=== PATIENT | male | born 1955 | race Caucasian/White ===

== ENCOUNTER → 2017-09-08 | Outpatient (CLI) | payer MEDICARE ==
[2017-09-08 09:38] LABS: EKG EKG PERFORMED
[2017-09-08 10:12] LABS: CH 30.6; CHCM 32.8; HCT 41.5 % (39.0-53.0); HDW 2.32; HGB 14.1 gm/dL (13.0-17.5); MCH 31.8 pg (25.0-35.0); MCHC 33.9 g/dL (31.0-37.0); MCV 93.7 fL (80.0-100.0); RBC 4.43 m/uL (4.30-5.90); RDW 13.6 % (11.5-15.5); WBC 7.6 k/uL (3.8-10.6)
[2017-09-08 10:23] LABS: Partial Thromboplastin Time 24.2 sec (22.0-30.0); Prothrombin Time 10.3 sec (9.0-12.0)
[2017-09-08 10:29] LABS: Appearance,Urine Clear (Clear); Bilirubin,Urine Negative (Negative); Glucose,Urine (UA) Negative (Negative); Ketones,Urine Negative (Negative); Leukocyte Esterase,Urine Negative (Negative); Nitrite,Urine Negative (Negative); Protein,Urine Negative (Negative); Specific Gravity,Urine 1.009 (1.001-1.035); UA Billing (MACRO vs. MICRO) CHEM; Urobilinogen,Urine <2.0 mg/dL (<2.0)
[2017-09-08 11:05] LABS: Anion Gap 10 mmol/L; Calcium 9.4 mg/dL (8.4-10.2); Carbon Dioxide 25 mmol/L (22-30); Chloride 103 mmol/L (98-107); Glucose 122 mg/dL (74-99); Non-African American GFR(MDRD) >60 (>60 ml/min/1.73 sqM); Sodium 138 mmol/L (137-145); Total Bilirubin 0.4 mg/dL (0.2-1.3); Total Protein 6.8 g/dL (6.3-8.2)
[2017-09-08 11:13] LABS: Blood Urea Nitrogen 12 mg/dL (9-20); Potassium 4.8 mmol/L (3.5-5.1)
[2017-09-08 11:14] LABS: ALT 26 U/L (21-72); AST 20 U/L (17-59); Alkaline Phosphatase 42 U/L (38-126)
== END | disposition home or self-care (01) ==
LOC: LABPAT 09:28
PROVIDERS: ATTEND Orthopaedic Surgery
DX: Z01.810 Encounter for preprocedural cardiovascular examination (principal); Z79.01 Long term (current) use of anticoagulants; Z01.812 Encounter for preprocedural laboratory examination
CPT/HCPCS: 36415; 80053; 81003; 85027; 85610; 85730; 87070; 93005

== ENCOUNTER → 2018-02-22 | Outpatient (CLI) | payer MEDICARE ==
--- NOTE | 2018-02-22 12:56 | CTL ---
EXAMINATION TYPE: CT Low Dose Lung DATE OF EXAM ORDERED: 02/22/2018 HISTORY: History of tobacco use. Lung cancer screening CT DLP: [address] CTDI: 3.9 mGy Automated exposure control for dose reduction was used. SCREENING VISIT: Initial study COMPARISON: None TECHNIQUE: Low dose computed tomography scan was performed through the chest at 1 mm thick sections a nd reconstructed images in the coronal plane at [address] DIAGNOSTIC QUALITY: Satisfactory FINDINGS: LUNG NODULES: Present, detailed below: An elongated 10 x 3 mm nodule abutting fissure and pleural surface axial image 152 inferior-anterior right upper lobe has fat density presumed benign. There are several calcified nodules throughout the right lung, largest measures 6 mm axial image 128. No suspicious greater than 6 mm noncalcified nodules identified bilaterally. LUNGS: COPD: Severity: Moderate Fibrosis: Severity: Moderate biapical pleural/parenchymal scarring Lymph nodes: Prominent but calcified paratracheal and right hilar lymph nodes are seen Other findings: No significant other findings identified. BILATERAL PLEURAL SPACE: Effusion: None Calcification: None Thickening: Mild to moderate biapical pleural thickening Pneumothorax: None HEART: Heart Size: Normal Coronary calcification: Mild Pericardial effusion: None OTHER FINDINGS: Upper abdomen: A few calcifications and spleen are present. Bony thorax: There is mild to moderate multilevel spurring in the thoracic spine. Supraclavicular region: No suspicious findings seen. Other: Small degree of bilateral gynecomastia is present. IMPRESSION: No suspicious greater than 6 mm nodules of soft tissue density. Evidence of old granuloma tous disease. FOLLOW UP CT CHEST RECOMMENDATION: Annual low-dose lung screening CT CT LUNG RAD: Lung-Rad 2 Benign Appearance or Behavior
== END | disposition home or self-care (01) ==
LOC: RADCTMAIN 11:50
PROVIDERS: ATTEND Family Medicine
DX: Z12.2 Encounter for screening for malignant neoplasm of respiratory organs (principal); Z87.891 Personal history of nicotine dependence

== ENCOUNTER → 2018-07-15 | Outpatient (CLI) | payer MEDICARE ==
--- NOTE | 2018-07-15 16:37 | XR ---
EXAMINATION TYPE: XR lumbar spine 2 or 3V DATE OF EXAM: 07/15/2018 COMPARISON: NONE HISTORY: Back pain TECHNIQUE: 3 views FINDINGS: There is a mild lower lumbar levoscoliosis. There is degenerative disc space narrowing thro ughout the lumbar spine and more severe at L4-5. There is spurring of the endplates. There is no comp ression fracture. Posterior elements are intact. Sacroiliac joints are intact. IMPRESSION: Multilevel spondylosis. Mild scoliosis. No fracture.
--- NOTE | 2018-07-15 16:38 | XR ---
EXAMINATION TYPE: XR cervical spine limited DATE OF EXAM: 07/15/2018 COMPARISON: None HISTORY: Neck pain TECHNIQUE: 4 views FINDINGS: There is cervical kyphotic deformity. There is old anterior fusion from C4 to C6. There is moderate spurring at C3-4 C6-7 C7-T1. Posterior elements are intact. Atlantoaxial facet joint is norm al. There are no cervical ribs. IMPRESSION: Previous fusion surgery. Kyphotic deformity. Spondylotic changes. No fracture seen.
== END | disposition home or self-care (01) ==
LOC: RADXRMAIN 16:07
PROVIDERS: ATTEND Chiropractor
DX: M47.812 Spondylosis without myelopathy or radiculopathy, cervical region (principal); M47.816 Spondylosis without myelopathy or radiculopathy, lumbar region; M41.86 Other forms of scoliosis, lumbar region; Z98.1 Arthrodesis status
CPT/HCPCS: 72040; 72100

== ENCOUNTER → 2020-07-23 | Outpatient (CLI) | payer MEDICARE ==
--- NOTE | 2020-07-23 16:32 | US ---
EXAMINATION TYPE: US abdomen complete DATE OF EXAM: 07/23/2020 COMPARISON: 08/15/2010 CLINICAL HISTORY: R10.11 RIGHT UPPER QUAD PAIN. EXAM MEASUREMENTS: Liver Length: 14.6 cm Gallbladder Wall: 0.3 cm CBD: 0.9 cm Spleen: 12.7 cm Right Kidney: 12.0 x 6.5 x 4.4 cm. Previous measurement 13.3 x 5.7 x 6.2 cm. Left Kidney: 13.0 x 7.3 x 5.2 cm previous measurement 11.8 x 6.8 x 5.8 cm. Pancreas: Obscured by bowel gas Liver: wnl Gallbladder: wnl Evidence for sonographic Perez's sign: CBD: dilated Spleen: scattered granuloma calcifications Right Kidney: No hydronephrosis or masses seen Left Kidney: 2 simple appearing cysts noted largest measuring 3.9 x 3.4 x 3.3cm, scattered calcifica tions, small stones vs calcified arteries. Upper IVC: wnl Abd Aorta: partially obscured by bowel gas, portions visualized wnl IMPRESSION: 1. Left renal cysts
== END | disposition home or self-care (01) ==
LOC: RADUSWWP 08:59
PROVIDERS: ATTEND Family Medicine
DX: N28.1 Cyst of kidney, acquired (principal)
CPT/HCPCS: 76700

== ENCOUNTER → 2021-07-09 | Outpatient (CLI) | payer MEDICARE ==
--- NOTE | 2021-07-10 08:09 | NM ---
EXAMINATION TYPE: NM stress cardiolite complete DATE OF EXAM: 07/09/2021 COMPARISON: NONE HISTORY: Shortness of breath chest pain COPD TECHNIQUE: After the intravenous administration of 9.69 mCi Tc 99m Sestamibi - Cardiolite resting SP ECT images acquired 45 minutes post injection. At peak stress 24.6 mCi Tc 99m Sestamibi - Stress images obtained 10 minutes post injection The patient was stressed with Shine protocol on the treadmill . Patient achieved 85% of predicted max imum heart rate. FINDINGS: No fixed defects are evident No reversible stress defects on Spect images Wall motion is normal Ejection fraction is calculated to be 62 %. IMPRESSION: 1. No stress-induced ischemic change.
--- NOTE | 2021-07-11 08:21 | EST ---
EXERCISE STRESS AGE: 65 SEX: M HT: 5'7" WT: 240 lbs. PROTOCOL: Cardiolite Shine STAGE: 2 DURATION OF EXERCISE: 5:32 HEART RATE REST: 67 BLOOD PRESSURE REST: 123/82 MAXIMUM HEART RATE ACHIEVED: 134 MAXIMUM BLOOD PRESSURE: 203/72 85% MPHR: 133 100% MPHR 157 METS: 7.1 INDICATIONS: Shortness of breath. CLINICAL INFORMATION: Baseline EKG shows sinus rhythm, normal axis, normal intervals. Patient exercised on Shine protocol for a total of 5-1/2 minutes, achieving 7 METS, 85% of predicted maximal heart rate, without chest pain. At peak exercise there was [address]-segment depression noted in the inferolateral lead. CONCLUSIONS: 1. Limited exercise tolerance. 2. Abnormal stress test by EKG criteria. 3. Cardiolite portion of the stress test will be reported separately. MIAN / CAYETANON: [id number] /
== END | disposition home or self-care (01) ==
LOC: RADNMMAIN 08:56
PROVIDERS: ATTEND Family Medicine
DX: R94.31 Abnormal electrocardiogram [ECG] [EKG] (principal)
CPT/HCPCS: 93017; 78452; A9500

== ENCOUNTER → 2021-12-31 | Outpatient (CLI) | payer MEDICARE ==
--- NOTE | 2021-12-31 08:25 | CTL ---
EXAMINATION TYPE: CT Low Dose Lung DATE OF EXAM ORDERED: 12/31/2021 HISTORY: Personal history of tobacco use. Lung cancer screening CT DLP: 138.[address] CTDI: 4.00 mGy Automated exposure control for dose reduction was used. SCREENING VISIT: First follow-up COMPARISON: CT dated 02/22/2018 TECHNIQUE: Low dose computed tomography scan was performed through the chest at 1 mm thick sections a nd reconstructed images in multiple planes at 1 mm and [address] DIAGNOSTIC QUALITY: Satisfactory FINDINGS: LUNG NODULES: The previously described elongated pleural-based nodule adjacent to the transverse fissure is not hayley reciated today. Left upper lobe solid 3 mm nodule, image #83, series 4, new. Stable scattered calcified pulmonary granulomas. LUNGS: COPD: Severity: Mild to moderate Fibrosis: Severity: Stable bilateral apical pulmonary fibrotic changes. Lymph nodes: Stable calcified hilar and mediastinal lymph nodes without progression. No pathologicall y enlarged lymph nodes. Other findings: None RIGHT PLEURAL SPACE: Effusion: None Calcification: None Thickening: None Pneumothorax: None LEFT PLEURAL SPACE: Effusion: None Calcification: None Thickening: None Pneumothorax: None HEART: Heart Size: Normal Coronary Calcification: Mild Pericardial Effusion: None OTHER FINDINGS: Upper abdomen: Stable splenic calcification likely related to previous granulomatous infection. Bony thorax: Mild degenerative changes of thoracic spine. Supraclavicular region: None Other: Scattered aortic atherosclerotic calcifications. IMPRESSION: Newly seen 3 mm left upper lobe nodule as described above. Stable pulmonary calcified gra nulomas and bilateral apical pulmonary fibrotic changes. CT LUNG RAD AND CT CHEST RECOMMENDATION: Benign appearance or behavior, category 2: Continue annual s creening with LDCT in 12 months. S Modifier (other clinically significant findings): None
== END | disposition home or self-care (01) ==
LOC: RADCTMAIN 06:56
PROVIDERS: ATTEND Family Medicine
DX: Z12.2 Encounter for screening for malignant neoplasm of respiratory organs (principal); R91.1 Solitary pulmonary nodule; J84.10 Pulmonary fibrosis, unspecified; Z87.891 Personal history of nicotine dependence
CPT/HCPCS: 71271

== ENCOUNTER → 2024-09-18 | Outpatient (CLI) | payer MEDICARE ==
[2024-09-18 13:29] LABS: African American GFR (CKD) >90 (>60 ml/min/1.73 sqM); Blood Urea Nitrogen 9 mg/dL (9-20); Non-African American GFR(CKD) 89 (>60 ml/min/1.73 sqM)
--- NOTE | 2024-09-18 14:24 | CT ---
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 CT DLP: [address] CTDI: mGy Automated exposure control for dose reduction was used. The craniovertebral junction relation to prevertebral soft tissues are normal. There is moderate to severe cervical kyphosis secondary to fusion of C4, C5-C6. There is moderate to marked disc space narrowing and spondylosis at the C3-4 and C6-7 levels indicating moderate to marked degenerative disc disease. Similar changes are seen at the C7/T1 level. There is moderate facet arthropathy and severe arthropathy of the uncovertebral joints throughout the cervical region. There is no bony compromise of the cervical canal. Multilevel neural foraminal stenosis as follows; severe at the C2-3 level on the left and severe at t he C3-4 level bilaterally. IMPRESSION: 1. Fusion of C4, C5 and C6 resulting in moderate to severe cervical kyphosis. 2. Advanced degenerative disc disease at the C3-4, C6-7 and C7/T1 levels. 3. Moderate facet and uncovertebral joint arthropathy resulting in neuroforaminal stenosis, severe at C2-3 on the left and severe at C3-4 bilaterally. [facility], , 09/18/2024 2:22 PM
--- NOTE | 2024-09-18 14:38 | CT ---
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 FINDINGS: The thoracic and lumbar vertebral segments are normal in height and alignment and there is no fractur e or subluxation. In the thoracic region, there is mild degenerative disc disease in the mid and lower thoracic spine. At the T7/T8 level there is a prominent hypertrophic spur posteriorly to the left of midline compromi sing the left lateral recess. There are no large thoracic disc herniations. There is mild bony neural foraminal encroachment at the T9-10 level on the left. In the lumbar spine, 4 mild bony neural foraminal encroachment at the T9/T10 level on the left. The re is partial fusion of the L4-5 segments. There is moderate disc space narrowing,, vacuum phenomena and hypertrophic spurring at the L3-4 and L 5-S1 levels indicating moderate degenerative disc disease. There is vacuum phenomena and mild narrowi ng with spondylosis at the L1-2 level indicating mild degenerative disc disease. Secondary to circumferential disc bulge, facet hypertrophy and thickening ligamentum flavum, there is a moderate to severe spinal stenosis at the L2-3 level. There is a suggestion of a moderate broad-based disc protrusion of the L3-4 disc on the left contribu ting to the spinal stenosis and left lateral recess stenosis. There is a probable small disc herniati on of the L4-5 disc posteriorly slightly to the right of midline. There is moderate to severe bony neural foraminal stenosis at the L3-4 and L4-5 levels on the right. IMPRESSION: 1. NO LUMBAR SPINE FRACTURE OR MALALIGNMENT. 2. MILD DEGENERATIVE DISC DISEASE IN THE MID TO LOWER THORACIC SPINE. 3. LEFT LATERAL RECESS STENOSIS AT THE T7/T8 LEVEL. 4. Severe spinal stenosis and left lateral recess stenosis at the L3-4 level. 5. Probable small L4-5 disc herniation. 6. Moderate to severe bony neural foraminal stenosis at the L3-4 and L4-5 levels on the right. [facility], , 09/18/2024 2:36 PM
== END | disposition home or self-care (01) ==
LOC: RADCTMAIN 12:40
PROVIDERS: ATTEND Physical Medicine & Rehabilitation Pain Medicine
DX: M47.817 Spondylosis without myelopathy or radiculopathy, lumbosacral region (principal); M50.30 Other cervical disc degeneration, unspecified cervical region; M96.1 Postlaminectomy syndrome, not elsewhere classified; M47.12 Other spondylosis with myelopathy, cervical region; M48.02 Spinal stenosis, cervical region; M48.04 Spinal stenosis, thoracic region; M48.061 Spinal stenosis, lumbar region without neurogenic claudication; M50.01 Cervical disc disorder with myelopathy, high cervical region; M51.34 Other intervertebral disc degeneration, thoracic region
CPT/HCPCS: 82565; 84520; 72128; 72127; 72131; 36415; Q9967